=== PATIENT | male | born 1985 | race Caucasian/White ===

== ENCOUNTER → 2016-04-13 | Outpatient (CLI) | payer OTHER ==
--- NOTE | 2016-04-13 09:51 | REP ---
Clinical: Trauma. Technique: AP, lateral, bilateral oblique views right hand . Findings: The osseous structures and joint spaces are intact and normal. There is no evidence for acute fracture or dislocation. Surrounding soft tissues are unremarkable. No subcutaneous emphysema or radiodense foreign body. Impression: No acute fracture or dislocation. Signed by Dmitriy Akbar MD 04/13/2016 09:43 A
--- NOTE | 2016-04-13 09:52 | REP ---
Clinical: Trauma. Technique: AP, lateral, bilateral oblique views right wrist . Findings: The carpal bones, surrounding osseous structures, soft tissues, and joint spaces are normal. There is no evidence for acute fracture or dislocation. No subcutaneous emphysema or radiodense foreign body. Impression: No acute fracture or dislocation Signed by Dmitriy Akbar MD 04/13/2016 09:44 A
--- NOTE | 2016-04-13 09:54 | REP ---
RIGHT ELBOW, FOUR VIEWS: HISTORY: Contusion. There is no acute fracture or dislocation. The joint space is normal in appearance. IMPRESSION: There is no acute fracture or dislocation. Signed by Frantz Shafer MD 04/13/2016 09:57 A
== END ==
LOC: M ADAMS 08:52
PROVIDERS: ATTEND Physician Assistant Medical
DX: S50.11XA Contusion of right forearm, initial encounter (principal); S60.211A Contusion of right wrist, initial encounter; X58.XXXA Exposure to other specified factors, initial encounter; Y93.9 Activity, unspecified; Y92.9 Unspecified place or not applicable; Y99.8 Other external cause status

== ENCOUNTER → 2016-12-08 | Outpatient (REF) | payer OTHER ==
[2016-12-08 21:21] LABS: BASO % 0.4 % (0.0-1.0); EOS # 0.1 10^3/uL (0.0-0.50); EOS % 1.2 % (0.0-3.0); IMMATURE GRANULOCYTE % 0.3 % (0-0); LYMPH # 3.3 10^3/uL (1.5-4.5); LYMPH % 32.5 % (24.0-44.0); MEAN CORPUSCULAR HEMOGLOBIN 30.2 pg (27.0-33.0); MEAN CORPUSCULAR HGB CONC 33.7 g/dl (32.0-36.5); MEAN CORPUSCULAR VOLUME 89.5 fl (80.0-96.0); MONO # 0.5 10^3/uL (0.0-0.8); MONO % 5.2 % (0.0-5.0); NEUTROPHILS # 6.2 10^3/uL (1.8-7.7); NEUTROPHILS % 60.4 % (36.0-66.0); PLATELET COUNT, AUTOMATED 178 10^3/uL (150-450); RED CELL DISTRIBUTION WIDTH 13.8 % (11.5-14.5); WHITE BLOOD COUNT 10.2 10^3/uL (4.0-10.0)
== END ==
LOC: M LABDRWAD 20:47
PROVIDERS: ATTEND Physician Assistant
DX: N39.0 Urinary tract infection, site not specified (principal); M54.5 Low back pain

== ENCOUNTER → 2016-12-08 | Outpatient (REF) | payer OTHER | LOC: M LAB REF 09:37 | PROVIDERS: ATTEND Physician Assistant | DX: N39.0 Urinary tract infection, site not specified (principal) ==

== ENCOUNTER → 2017-05-14 | Outpatient (REF) | payer OTHER | LOC: M LAB REF 18:22 | DX: L05.01 Pilonidal cyst with abscess (principal) | CPT/HCPCS: 87076 ==

== ENCOUNTER 2017-08-04 16:50 | Day surgery (SDC) | payer OTHER ==
[~2017-08-04 16:50] MED LIST: LIDOCAINE 2% INJ 100 MG/5 ML SDV (FOR ANES.) As Ordered; MIDAZOLAM INJ 2 MG/2 ML VIAL (J2250) As Ordered; ONDANSETRON 4MG/2ML VIAL (J2405) As Ordered; PROPOFOL 200 MG/20 ML VIAL As Ordered; fentaNYL 250 MCG/5 ML INJECTION (J3010) As Ordered
[2017-08-04] MEDS: LR 1,000 ML IV ×2 (17:20)
[2017-08-04] MEDS ORDERED: SUCCINYLCHOLINE 100 MG/5 ML SYRINGE (J0330) As Ordered ×2 (17:39)
[2017-08-04] MEDS ORDERED: ROCURONIUM BROMIDE 50 MG/5 ML VIAL As Ordered ×2 (17:39)
[2017-08-04] MEDS ORDERED: dexameTHASONE 4 MG/ML 1ML VIAL (J1100) As Ordered ×2 (18:36)
[2017-08-04] MEDS ORDERED: ONDANSETRON 4MG/2ML VIAL (J2405) As Ordered ×2 (18:37)
[2017-08-04] MEDS ORDERED: HYDROmorphone HCL 2 MG/ML 1ML VIAL (J1170) As Ordered ×2 (18:51)
[2017-08-04] MEDS: BUPIVACAINE LIPOSOME/PF 1.3% 20 ML VIAL (13.3MG/ML)(EXPAREL) As Ordered ×2 (19:17)
[2017-08-04] MEDS ORDERED: ONDANSETRON 4MG/2ML VIAL (J2405) IV ×2 (20:30)
[2017-08-04] MEDS ORDERED: LR 1,000 ML IV ×2 (20:30)
[2017-08-04] MEDS ORDERED: ACETAMINOPHEN TAB 650MG DOSE (2X325MG) PO ×2 (20:30)
[2017-08-04] MEDS: NORCO, ANEXSIA 5/325MG TABLET (HYDROcodone/ACETAMINOPHEN) PO ×4 (20:31→20:59)
[2017-08-04] MEDS: fentaNYL 100 MCG/2 ML INJECTION (J3010) IV ×4 (20:57→21:02)
[2017-08-04] MEDS ORDERED: NORCO, ANEXSIA 5/325MG TABLET (HYDROcodone/ACETAMINOPHEN) PO ×2 (21:00)
== END 2017-08-04 21:56 | disposition home or self-care (01) ==
LOC: M SDC 16:50
DX: L05.01 Pilonidal cyst with abscess (principal); F17.210 Nicotine dependence, cigarettes, uncomplicated
CPT/HCPCS: 11770

== ENCOUNTER 2017-09-22 23:03 | Emergency (ER) | payer OTHER ==
[2017-09-23] MEDS: LIDOCAINE W/EPINEPHRINE 1% 20ML VIAL SC (00:23)
== END 2017-09-23 00:54 | disposition home or self-care (01) ==
LOC: M ED 23:03
DX: L76.82 Other postprocedural complications of skin and subcutaneous tissue (principal); K52.9 Noninfective gastroenteritis and colitis, unspecified; Z72.0 Tobacco use; Z91.89 Other specified personal risk factors, not elsewhere classified
CPT/HCPCS: 12001

== ENCOUNTER → 2017-09-22 | Outpatient (REF) | payer OTHER | LOC: M LAB REF 12:34 | DX: L72.0 Epidermal cyst (principal) | CPT/HCPCS: 88304 ==

== ENCOUNTER 2017-11-08 06:44 | Day surgery (SDC) | payer OTHER ==
[~2017-11-08 06:44] MED LIST changes: -LIDOCAINE 2% INJ 100 MG/5 ML SDV (FOR ANES.) As Ordered; +LR 1,000 ML IV; -MIDAZOLAM INJ 2 MG/2 ML VIAL (J2250) As Ordered; -ONDANSETRON 4MG/2ML VIAL (J2405) As Ordered; -PROPOFOL 200 MG/20 ML VIAL As Ordered; -fentaNYL 250 MCG/5 ML INJECTION (J3010) As Ordered
[2017-11-08] MEDS: BUPIVACAINE HCL 0.25% 30 ML VIAL As Ordered (07:16)
[2017-11-08] MEDS ORDERED: PROPOFOL 200 MG/20 ML VIAL As Ordered ×3 (07:51→08:49)
[2017-11-08] MEDS ORDERED: ROCURONIUM BROMIDE 50 MG/5 ML VIAL As Ordered (07:51)
[2017-11-08] MEDS ORDERED: fentaNYL 100 MCG/2 ML INJECTION (J3010) As Ordered ×3 (07:51→08:05)
[2017-11-08] MEDS ORDERED: MIDAZOLAM INJ 2 MG/2 ML VIAL (J2250) As Ordered (07:51)
[2017-11-08] MEDS ORDERED: LIDOCAINE 2% INJ 100 MG/5 ML SDV (FOR ANES.) As Ordered (07:51)
[2017-11-08] MEDS ORDERED: dexameTHASONE 4 MG/ML 1ML VIAL (J1100) As Ordered (07:54)
[2017-11-08] MEDS ORDERED: ONDANSETRON 4MG/2ML VIAL (J2405) As Ordered (07:54)
[2017-11-08] MEDS: LIDOCAINE W/EPINEPHRINE 1% 20ML VIAL As Ordered (08:07)
[2017-11-08] MEDS ORDERED: ONDANSETRON 4MG/2ML VIAL (J2405) IV (09:15)
[2017-11-08] MEDS ORDERED: fentaNYL 100 MCG/2 ML INJECTION (J3010) IV (09:15)
[2017-11-08] MEDS ORDERED: ACETAMINOPHEN TAB 650MG DOSE (2X325MG) PO (09:15)
[2017-11-08] MEDS ORDERED: PERCOCET 5MG/325MG TAB PO (09:15)
[2017-11-08] MEDS ORDERED: LR 1,000 ML IV (09:15)
[2017-11-08] MEDS ORDERED: HYDROMORPHONE HCL 0.5 MG/ 0.5 ML SYRINGE (J1170 PER 1) IV (09:15)
[2017-11-08] MEDS ORDERED: GLYCOPYRROLATE INJ 0.2 MG/ML 2 ML VIAL As Ordered (10:06)
[2017-11-08] MEDS ORDERED: NEOSTIGMINE 10 MG/10 ML VIAL (J2710) As Ordered (10:06)
== END 2017-11-08 10:40 | disposition home or self-care (01) ==
LOC: M SDC 06:44
DX: L72.0 Epidermal cyst (principal); K52.9 Noninfective gastroenteritis and colitis, unspecified; R06.83 Snoring; F12.90 Cannabis use, unspecified, uncomplicated; Z91.048 Other nonmedicinal substance allergy status; Z72.0 Tobacco use
CPT/HCPCS: 11444

== ENCOUNTER → 2018-06-29 | Outpatient (REF) | payer OTHER | LOC: M LAB REF 13:28 | PROVIDERS: ATTEND Physician Assistant | DX: R10.815 Periumbilic abdominal tenderness (principal) ==

== ENCOUNTER → 2018-06-29 | Outpatient (CLI) | payer OTHER ==
[~2018-06-29] MED LIST changes: +GASTROGRAFIN SOLUTION 30ML (Q9963) As Ordered ONE; +ISOVUE-370 76% 100ML VIAL (Q9967) As Ordered ONE; -LR 1,000 ML IV
[2018-06-29 10:41] LABS: BASO # 0.1 10^3/uL (0.0-0.2); BASO % 0.6 % (0.0-1.0); EOS # 0.2 10^3/uL (0.0-0.50); EOS % 2.6 % (0.0-3.0); HEMATOCRIT 48.4 % (42.0-52.0); HEMOGLOBIN 15.8 g/dl (13.5-17.5); MEAN CORPUSCULAR HEMOGLOBIN 30.2 pg (27.0-33.0); MEAN CORPUSCULAR HGB CONC 32.6 g/dl (32.0-36.5); MEAN CORPUSCULAR VOLUME 92.4 fl (80.0-96.0); MONO # 0.6 10^3/uL (0.0-0.8); MONO % 6.5 % (0.0-5.0); NEUTROPHILS % 55.9 % (36.0-66.0); PLATELET COUNT, AUTOMATED 174 10^3/uL (150-450); RED BLOOD COUNT 5.24 10^6/uL (4.30-6.10); WHITE BLOOD COUNT 8.9 10^3/uL (4.0-10.0)
[2018-06-29 11:12] LABS: ALBUMIN 4.2 GM/DL (3.2-5.2); ALT/SGPT 31 U/L (12-78); BILIRUBIN,TOTAL 0.3 MG/DL (0.2-1.0); BLOOD UREA NITROGEN 22 MG/DL (7-18); CARBON DIOXIDE LEVEL 30 MEQ/L (21-32); CHLORIDE LEVEL 105 MEQ/L (98-107); CREATININE FOR GFR 1.04 MG/DL (0.70-1.30); GLOMERULAR FILTRATION RATE > 60.0 (>60); GLUCOSE, FASTING 90 MG/DL (70-100); POTASSIUM SERUM 4.7 MEQ/L (3.5-5.1); SODIUM LEVEL 140 MEQ/L (136-145); TOTAL PROTEIN 7.2 GM/DL (6.4-8.2)
--- NOTE | 2018-06-29 13:31 | REP ---
CT abdomen and pelvis with IV and oral contrast: History: Periumbilical abdominal tenderness. History of bilateral inguinal hernia repair in 2013 with mesh placement. Erythema and green discharge from the umbilicus. Comparison CT study August 28, 2014. CT contrast dose: 100 mL of intravenous Isovue 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 There appears to be a surgical clip in the left inguinal soft tissues. Normal bowel gas pattern. The lung bases are clear. The liver and the spleen are normal in size and homogeneous in texture. No adrenal lesion is seen on either side. The pancreas is unremarkable. No abnormality is noted in the gallbladder. Small and large intestinal bowel loops are unremarkable in the upper abdomen. No retroperitoneal mass or adenopathy is seen. No evidence of umbilical or periumbilical mass or inflammation is seen by CT. Prostate, seminal vesicles, and urinary bladder are unremarkable. No pelvic mass or adenopathy is seen. Small and large intestinal bowel loops are normal in appearance. Normal appendix is seen. Impression: Surgical clip left inguinal soft tissues. Otherwise normal CT abdomen and pelvis with IV and oral contrast. Electronically Signed by Salvatore Dela Cruz MD 06/29/2018 03:11 P
== END ==
LOC: M RAD 10:06
PROVIDERS: ATTEND Physician Assistant
DX: R10.815 Periumbilic abdominal tenderness (principal)
CPT/HCPCS: 74177; 80053; 85025; Q9963; Q9967

== ENCOUNTER → 2018-06-29 | Outpatient (REF) | payer OTHER | LOC: M WUC 12:20 | PROVIDERS: ATTEND Physician Assistant | DX: R10.815 Periumbilic abdominal tenderness (principal) ==

== ENCOUNTER 2020-06-09 09:24 | Emergency (ER) | payer OTHER ==
[~2020-06-09] VITALS: Ht 182.9 cm; Wt 93.2 kg
[2020-06-09 09:24] VITALS: BP 116/68
--- NOTE | 2020-06-09 10:03 | REP ---
INDICATION: foriegn body COMPARISON: None. TECHNIQUE: AP, lateral, bilateral oblique views right hand. FINDINGS: The osseous structures and joint spaces are intact and normal. There is no evidence for acute fracture or dislocation. Surrounding soft tissues are unremarkable. No subcutaneous emphysema or radiodense foreign body. IMPRESSION: No foreign body or subcutaneous emphysema. No acute fracture or dislocation. <Electronically signed by Dmitriy Akbar > 06/09/20 1000
[2020-06-09] MEDS ORDERED: BOOSTRIX/ADACEL VACCINE (DIPHTH/PERTUSS/ACELL/TETANUS) 0.5ML SYR IM ONE (11:15)
[2020-06-09] MEDS ORDERED: IBUPROFEN 800 MG TAB PO ONE (11:30)
== END 2020-06-09 12:07 | disposition home or self-care (01) ==
LOC: M ED 09:24
DX: S61.431A Puncture wound without foreign body of right hand, initial encounter (principal); X58.XXXA Exposure to other specified factors, initial encounter; Y92.009 Unspecified place in unspecified non-institutional (private) residence as the place of occurrence of the external cause; Y93.9 Activity, unspecified; Y99.9 Unspecified external cause status; F17.290 Nicotine dependence, other tobacco product, uncomplicated; Z91.89 Other specified personal risk factors, not elsewhere classified

== ENCOUNTER 2022-10-01 12:22 | Emergency (ER) | payer OTHER ==
[~2022-10-01] VITALS: Ht 185.4 cm; Wt 94.1 kg
[2022-10-01 12:22] VITALS: TEMP 97.5
[2022-10-01] MEDS ORDERED: IBUP80TA PO (17:03)
[2022-10-01] MEDS ORDERED: ANEC4CRE3 TOP (17:03)
[2022-10-01] MEDS ORDERED: IBUPROFEN 800 MG TAB PO ONE (17:05)
[2022-10-01 17:13] VITALS: BP 123/68; O2SAT 100
== END 2022-10-01 17:38 | disposition home or self-care (01) ==
LOC: M ED 12:22
DX: S90.811A Abrasion, right foot, initial encounter (principal); W23.0XXA Caught, crushed, jammed, or pinched between moving objects, initial encounter; Y99.0 Civilian activity done for income or pay; Z91.89 Other specified personal risk factors, not elsewhere classified

== ENCOUNTER 2023-03-31 15:53 | Emergency (ER) | payer OTHER ==
[~2023-03-31] VITALS: Ht 185.4 cm; Wt 96.4 kg
[~2023-03-31 15:53] MED LIST changes: +ANEC4CRE3 TOP; -GASTROGRAFIN SOLUTION 30ML (Q9963) As Ordered ONE; +IBUP80TA PO; -ISOVUE-370 76% 100ML VIAL (Q9967) As Ordered ONE
[2023-03-31] MEDS: LIDOCAINE 1% MDV 20ML VIAL SC ONE (18:35)
[2023-03-31 18:38] VITALS: BP 133/93; TEMP 97.5; O2SAT 100
[2023-03-31] MEDS: BACTRIM 160MG/800MG DS TAB PO ONE (18:50)
[2023-03-31] MEDS ORDERED: BACT800T5 PO (19:01)
[2023-03-31] MEDS ORDERED: IBUP-1022 PO (19:01)
== END 2023-03-31 19:14 | disposition home or self-care (01) ==
LOC: M ED 15:53
DX: L02.219 Cutaneous abscess of trunk, unspecified (principal); Z91.048 Other nonmedicinal substance allergy status; Z79.1 Long term (current) use of non-steroidal anti-inflammatories (NSAID); Z79.899 Other long term (current) drug therapy

== ENCOUNTER 2024-03-28 07:55 | Emergency (ER) | payer OTHER ==
[~2024-03-28] VITALS: Ht 185.4 cm; Wt 104.2 kg
[~2024-03-28 07:55] MED LIST changes: +BACT800T5 PO; +IBUP-1022 PO
[2024-03-28] MEDS ORDERED: HYDR-3713 PO (11:34)
[2024-03-28 11:45] VITALS: BP 146/85; TEMP 98; O2SAT 99
== END 2024-03-28 11:48 | disposition home or self-care (01) ==
LOC: M ED 07:55
DX: S29.9XXA Unspecified injury of thorax, initial encounter (principal); X50.9XXA Other and unspecified overexertion or strenuous movements or postures, initial encounter; Y92.9 Unspecified place or not applicable; Y93.9 Activity, unspecified; Y99.9 Unspecified external cause status; Z87.19 Personal history of other diseases of the digestive system; Z91.89 Other specified personal risk factors, not elsewhere classified

== ENCOUNTER 2024-12-25 08:13 | Emergency (ER) | payer OTHER ==
[~2024-12-25] VITALS: Ht 185.4 cm; Wt 99.7 kg
[~2024-12-25 08:13] MED LIST changes: +HYDR-3713 PO; -IBUP-1022 PO; +IBUP600T42 PO
[2024-12-25] MEDS ORDERED: CIPRHCOTIC OTIC (09:07)
[2024-12-25] MEDS ORDERED: AMOX875T2 PO (09:07)
[2024-12-25 09:27] VITALS: BP 120/73; TEMP 97.7; O2SAT 100
== END 2024-12-25 09:41 | disposition home or self-care (01) ==
LOC: M ED 08:13
DX: H66.93 Otitis media, unspecified, bilateral (principal); H60.93 Unspecified otitis externa, bilateral; Z91.89 Other specified personal risk factors, not elsewhere classified

== ENCOUNTER 2025-01-07 08:09 | Emergency (ER) | payer OTHER ==
[~2025-01-07] VITALS: Ht 185.4 cm; Wt 100.6 kg
[~2025-01-07 08:09] MED LIST changes: +AMOX875T2 PO; +CIPRHCOTIC OTIC
[2025-01-07] MEDS: DOCUSATE SOD LIQ 100 MG/10 ML UDC PO ONE (09:06)
[2025-01-07] MEDS ORDERED: DOCUSATE SOD LIQ 100 MG/10 ML UDC PO ONE (11:00)
[2025-01-07] MEDS ORDERED: DEBR6.5S4 OTIC (12:01)
[2025-01-07 12:11] VITALS: BP 131/91; TEMP 98; O2SAT 100
== END 2025-01-07 12:18 | disposition home or self-care (01) ==
LOC: M ED 08:09
DX: H61.21 Impacted cerumen, right ear (principal); Z91.09 Other allergy status, other than to drugs and biological substances; Z79.2 Long term (current) use of antibiotics; Z79.899 Other long term (current) drug therapy